=== PATIENT | male | born 1980 | race African-American/Black ===

== ENCOUNTER 2019-01-22 00:13 | Emergency (ER) | payer OTHER ==
[2019-01-22 00:26] VITALS: BP 108/66; PULSE 63; TEMP 98.2; BMI 27.7
[2019-01-22] MEDS ORDERED: DIPHTH,PERTUSS(ACELL),TET 0.5 ML DISP.SYRIN IM ONE ×2 (00:30→00:42)
--- NOTE | 2019-01-22 01:33 | PDOC ---
History of Present Illness - General Chief Complaint: Laceration Stated Complaint: LACERATION Time Seen by Provider: 01/22/19 00:44 History Source: Patient Exam Limitations: No Limitations - History of Present Illness Initial Comments: 01/22/19 01:39 38 yo male no sig pmh presents to the ED after left hand lac. Pt states he was helping a friend move a glass table and in the process, it shattered leading to a 2 cm laceration to the left hand hypothenar eminence. Hemostasis achieved with light compression. Pt denies sensory or strength deficits distal to lac, full ROM, tetanus up to date. Past History - Past Medical History Allergies/Adverse Reactions: Allergies Allergy/AdvReac Type Severity Reaction Status Date / Time No Known Allergies Allergy Verified 01/22/19 00:26 COPD: No - Suicide/Smoking/Psychosocial Hx Smoking History: Never smoked Review of Systems - Review of Systems Constitutional: No: Chills, Fever Respiratory: No: Shortness of Breath Cardiac (ROS): No: Chest Pain Integumentary: Yes: Other (laceration to left hand) Neurological: No: Numbness, Paresthesia, Tingling, Weakness *Physical Exam - Vital Signs Last Vital Signs Temp Pulse Resp BP Pulse Ox 98.2 F 63 18 108/66 98 01/22/19 00:21 01/22/19 00:21 01/22/19 00:21 01/22/19 00:21 01/22/19 00:21 - Physical Exam General Appearance: Yes: Nourished, Appropriately Dressed. No: Apparent Distress HEENT: positive: EOMI Neck: positive: Supple Respiratory/Chest: positive: Lungs Clear Cardiovascular: positive: Regular Rhythm, Regular Rate Vascular Pulses: Dorsalis-Pedis (R): 4+, Doralis-Pedis (L): 4+ Comments:: 01/22/19 02:00 radial pulses equal bilaterally 4+ Gastrointestinal/Abdominal: positive: Flat, Soft. negative: Tender Extremity: positive: Normal Capillary Refill Integumentary: positive: Normal Color, Dry, Warm, Other (2 cm laceration to left hypothenar eminice, not atively bleeding ) Neurologic: positive: Fully Oriented, Alert, Normal Mood/Affect, Normal Response , Motor Strength 5/5. negative: Numbness, Sensory Deficit Procedures - Laceration/Wound Repair Left Anterior Hand Wound Length: to 2.5 cm Wound Explored: clean, no foreign body present Wound's Depth, Shape: superficial, linear Irrigated w/ Saline: Yes Anesthesia: 1% Lidocaine Amount of Anesthetic (ccs): 3 Wound Repaired With: Sutures Suture Size/Type: 4:0 Number of Sutures: 2 Layer Closure: No ED Treatment Course - RADIOLOGY Radiology Studies Ordered: Category Date Time Status HAND- LEFT [RAD] Stat Radiology 01/22/19 00:37 Taken - Medications Given in the ED: ED Medications Discontinued Medications Generic Name Dose Route Start Last Admin Trade Name Fretravis PRN Reason Stop Dose Admin Diphtheria/Tetanus/Acell Pertussis 0.5 ml 01/22/19 00:30 01/22/19 00:44 Boostrix - IM 01/22/19 00:31 0.5 ml .ONCE ONE Administration Medical Decision Making - Medical Decision Making See HPI Vitals stable 01/22/19 01:31 Wound cleaned under pressure for 5 min 3ml 1% lido used for pain control Procedure well tolerated 2 sutures placed without complications pulses, sensation and strength distal to laceration intact prior to and after procedure Pt give strict return precautions for potential infection and information on how to care for wound including suture removal information Understands and agrees with plan *DC/Admit/Observation/Transfer Diagnosis at time of Disposition: Laceration of hand Qualifiers: Encounter type: initial encounter Foreign body presence: without foreign body Laterality: left Qualified Code(s): S61.412A - Laceration without foreign body of left hand, initial encounter - Discharge Dispostion Disposition: HOME Condition at time of disposition: Stable Decision to Admit order: No - Referrals - Patient Instructions Printed Discharge Instructions: DI for Laceration Repair Additional Instructions: Please see your primary Doctor and have your sutures removed in 7-10 days. Keep the wound clean and dry for 24 hours. Return to the ER for new or concerning symptoms including but not limited to: fevers, swelling, drainages, redness or excessive pain from incision site. Thank you - Post Discharge Activity
== END 2019-01-22 01:36 | disposition home or self-care (01) ==
LOC: JER 00:13
PROC: 0HQGXZZ Repair Left Hand Skin, External Approach (ICD-10-PCS; principal; 2019-01-22)
PROC: 3E0234Z Introduction of Serum, Toxoid and Vaccine into Muscle, Percutaneous Approach (ICD-10-PCS; 2019-01-22)
DX: S61.412A Laceration without foreign body of left hand, initial encounter (principal); W25.XXXA Contact with sharp glass, initial encounter; Y93.E9 Activity, other interior property and clothing maintenance; Y92.038 Other place in apartment as the place of occurrence of the external cause; Y99.8 Other external cause status
CPT/HCPCS: 12001-25; 73130-TC-LT-FY; 90471; 90715; 99281-25